=== PATIENT | female | born 1990 | race Caucasian/White ===

== ENCOUNTER 2021-04-22 09:38 | Observation (INO) | payer OTHER, SELFPAY ==
--- NOTE | 2021-04-22 09:38 | OBADM ---
This patient, Monserrat Terry, admitted to the OB room OB Post [facility] for observation. Patient/family oriented to hospital policies and general routines including ID bracelet, bed and alarms, visiting hours, pain management, procedures, bathroom and other care routines, personal items, smoking policy, room service/diet, and visiting hours. Patient/Family are encouraged to report perceived risks to care and to ask questions if they do not understand what they are told or what they should do.
[2021-04-22 10:14] VITALS: BP 112/66; PULSE 83
[2021-04-22 10:26] LABS: Add Urine Microscopic? NO; Appearance Urine Clear (Clear); Bilirubin Urine Negative (Negative); Blood Urine Negative (Negative); Color Urine Yellow (Yellow); Glucose Urine UA Negative (Negative); Ketones Urine Negative (Negative); Leukocyte Esterase Ur Negative LEU/UL (NEGATIVE); Nitrate Urine Negative (Negative); Protein Urine Negative (Negative); Specific Grav Ur 1.016 (1.001-1.035); Urobilinogen Urine Negative mg/dL (<2.0)
[2021-04-22 10:30] VITALS: BMI 32.8
--- NOTE | 2021-05-13 11:45 | PM.OBTRLD ---
OB - Triage/Final Diagnosis Visit Information Comments/Additional reasons for admission: I have assessed the risk for this patient, Monserrat Monkpetey, and determined that she would benefit from observation care. Evaluation Laboratory results: Laboratory Tests 04/22/21 10:14 Urine Color Yellow Urine Appearance Clear Urine pH 6.0 Ur Specific [place] 1.016 Urine Protein Negative Urine Glucose (UA) Negative Urine Ketones Negative Ur Blood (Man) Negative Urine Nitrate Negative Urine Bilirubin Negative Urine Urobilinogen Negative Ur Leukocyte Esterase Negative Final Diagnosis (1) False labor: Code(s): O47.9 - False labor, unspecified Status: Acute
== END 2021-04-22 11:55 | disposition home or self-care (01) ==
PROVIDERS: Admitting Provider Obstetrics & Gynecology; PCP Family Medicine; Visit Provider Obstetrics & Gynecology
DX: O47.02 False labor before 37 completed weeks of gestation, second trimester (principal); Z3A.27 27 weeks gestation of pregnancy
CPT/HCPCS: 81003; 84112; 87086; G0378; G0379

== ENCOUNTER 2021-06-19 20:58 | Observation (INO) | payer OTHER, SELFPAY ==
[2021-06-19 21:11] VITALS: BP 123/74; PULSE 80
[2021-06-19 22:17] VITALS: BMI 33.2
--- NOTE | 2021-06-21 12:30 | PM.OBTRLD ---
OB - Triage/Final Diagnosis Visit Information Reason for evaluation: threatened labor Comments/Additional reasons for admission: I have assessed the risk for this patient, Monserrat Terry, and determined that she would benefit from observation care.
== END 2021-06-19 22:15 | disposition home or self-care (01) ==
PROVIDERS: Admitting Provider Obstetrics & Gynecology; PCP Family Medicine; Visit Provider Obstetrics & Gynecology
DX: O47.03 False labor before 37 completed weeks of gestation, third trimester (principal); Z3A.35 35 weeks gestation of pregnancy
CPT/HCPCS: G0378; G0379

== ENCOUNTER 2021-07-08 20:46 | Observation (INO) | payer OTHER, SELFPAY ==
--- NOTE | 2021-07-08 20:46 | OBADM ---
This patient, Monserrat Terry, admitted to the OB room Labor/Delivery/Recovery 102 for observation. Patient/family oriented to hospital policies and general routines including ID bracelet, bed and alarms, visiting hours, pain management, procedures, bathroom and other care routines, personal items, smoking policy, room service/diet, and visiting hours. Patient/Family are encouraged to report perceived risks to care and to ask questions if they do not understand what they are told or what they should do.
[2021-07-08 20:59] VITALS: TEMP 36.4
--- NOTE | 2021-07-08 22:05 | PC.NURSE ---
Updated Dr. Gunter. Patient SVE unchanged throughout evaluation. Contractions and FHT reviewed. VSS. Discharge orders received.
--- NOTE | 2021-07-08 22:30 | PC.NURSE ---
Discharge instructions reviewed with patient. Labor precautions reviewed. Patient states understanding and agrees to discharge.
== END 2021-07-08 22:30 | disposition home or self-care (01) ==
PROVIDERS: Admitting Provider Obstetrics & Gynecology; PCP Family Medicine; Visit Provider Obstetrics & Gynecology
DX: O47.1 False labor at or after 37 completed weeks of gestation (principal); Z3A.38 38 weeks gestation of pregnancy
CPT/HCPCS: G0378; G0379

== ENCOUNTER 2021-07-16 15:54 | Inpatient (IN) | payer OTHER, SELFPAY ==
[2021-07-16] VITALS (12 sets, daily range): BP systolic 108–128; BP diastolic 58–77; PULSE 73–98; TEMP 36.4–36.7; BMI 33.9
--- NOTE | 2021-07-16 16:26 | LDADM ---
This patient, Monserrat Terry, was admitted to Labor/Delivery/Recovery 107 on 07/16/21 at 15:54. Plans for labor, pain management and were discussed with patient. Patient/family oriented to hospital policies and general routines including ID bracelet, bed and alarms, visiting hours, pain management, procedures, bathroom and other care routines, personal items, smoking policy, room service/diet and guest tray routines, security routines, and visiting hours. Patient/Family are encouraged to report perceived risks to care and to ask questions if they do not understand what they are told or what they should do. See OBIX for further documentation.
[2021-07-16 16:40] LABS: Basophils Percent Auto 0.3 % (0.2-1.2); Eosinophils Absolute Auto 0.1 K/mm3 (0-0.3); Eosinophils Percent Auto 0.7 % (0-4.4); Hematocrit 30.9 % (37.0-47.0); Hemoglobin 10.5 g/dL (12.0-15.0); Immature Granulocyte Absolute 0.11 K/mm3 (0.00-0.031); Immature Granulocyte Percent A 1.1 % (0-0.5); Lymphocytes Absolute Auto 2.05 K/mm3 (0.9-3.2); Lymphocytes Percent Auto 19.8 % (18.3-44.2); Mean Corpuscular Hemoglobin 31.2 pg (26-34); Mean Corpuscular Volume 91.7 fl (80-100); Mean Platelet Volume 9.6 fl (7.4-10.4); Monocytes Absolute Auto 0.9 K/mm3 (0.1-0.6); Monocytes Percent Auto 8.3 % (2.6-8.5); Neutrophils Absolute Auto 7.2 K/mm3 (1.3-6.7); Neutrophils Percent Auto 69.8 % (45.5-73.1); Platelet Count Result 256 k/mm3 (150-375); Red Blood Count 3.37 M/mm3 (4.2-5.4); Red Cell Distribution Width 13.4 % (11.5-14.5); White Blood Count 10.4 K/mm3 (4.5-10.0)
[2021-07-16] MEDS: DINOPROSTONE 10 MG VAG INSERT VAGINAL (17:01)
--- NOTE | 2021-07-16 19:06 | WPDANESEPP ---
Anes - Eval Pre Procedure Date/Time: 07/16/21 19:06 Pre Op Diagnosis: IOL Patient Data Age: 31 Gender: F Height: 1.65 m Weight: 92.5 kg Last Vital Signs Temp 36.7 C 07/16/21 17:06 Pulse 83 07/16/21 19:01 BP 126/77 07/16/21 19:01 Allergies Allergy/AdvReac Type Severity Reaction Status Date / Time codeine Allergy Unknown shortness Verified 06/21/21 13:41 of breath Home Medications Medication Instructions Recorded Confirmed Type prenat.vits,silviano,[id number] 1 tablet PO DAILY 07/08/21 07/16/21 History [ Vitamin] Laboratory Tests 07/16/21 07/16/21 07/16/21 16:17 16:17 16:17 WBC 10.4 K/mm3 H K/mm3 (4.5-10.0) RBC 3.37 M/mm3 L M/mm3 (4.2-5.4) Hgb 10.5 g/dL L g/dL (12.0-15.0) Hct 30.9 % L % (37.0-47.0) MCV 91.7 fl fl (80-100) MCH 31.2 pg pg (26-34) MCHC 34.0 g/dl g/dl (32-36) RDW 13.4 % % (11.5-14.5) Plt Count 256 k/mm3 k/mm3 (150-375) MPV 9.6 fl fl (7.4-10.4) Immature Gran % (Auto) 1.1 % H % (0-0.5) Neut % (Auto) 69.8 % % (45.5-73.1) Lymph % (Auto) 19.8 % % (18.3-44.2) [place] % (Auto) 8.3 % % (2.6-8.5) Eos % (Auto) 0.7 % % (0-4.4) Baso % (Auto) 0.3 % % (0.2-1.2) Lymph # (Auto) 2.05 K/mm3 K/mm3 (0.9-3.2) [place] # (Auto) 0.9 K/mm3 H K/mm3 (0.1-0.6) Eos # (Auto) 0.1 K/mm3 K/mm3 (0-0.3) Baso # (Auto) 0.0 K/mm3 K/mm3 (0.0-0.1) Abs Immat Gran (auto) 0.11 K/mm3 H K/mm3 (0.00-0.031) Absolute Neuts (auto) 7.2 K/mm3 H K/mm3 (1.3-6.7) Absolute Nucleated RBC 0.0 K/mm3 K/mm3 (0.0-0.012) Nucleated RBC % 0.0 % % (0.0-0.2) RPR Pending Blood Type O Positive Antibody Screen Negative Patient hx anesthesia problems: none Family hx anesthesia problems: none Results Review: All pre-operative results and documents have been reviewed as part of the pre-operative evaluation. [facility] Family History Family History Sibling Family history of alcoholism Other Family history of thyroid disease Grandparent Breast cancer in female Grandparent Ovarian cancer Hypertension Social History Social History Social History: Single Smoking status: Never smoker Tobacco type: cigarettes Second hand tobacco smoke exposure: Yes Additional smoking assessment comments: Pt smokes 3 or 4 a week. Mostly a social smoker. Alcohol intake: current Alcohol use details: Occasionally Substance use: never Substance use type: former substance user Last use: marijuana Gender identity (if verbalized by the patient): Female Sexual Orientation (if Verbalized by the Patient): Straight or Heterosexual Spiritual care concerns: No Exam Day of Procedure 07/16/21 19:06 Patient weight: obese Heart: regular rate and rhythm Lungs: normal air movement Airway: Mallampati scale Neurological: alert and oriented
[2021-07-16 19:55] LABS: Amphetamine Screen Urine Negative (Negative); Barbiturate Screen Urine Negative (Negative); Benzodiazepines Screen Urine Negative (Negative); Cannabinoid Screen Urine Positive (Negative); Cocaine Screen Urine Negative (Negative); Methadone Screen Urine Negative (Negative); Opiate Screen Urine Negative (Negative); Phencyclidine Screen Urine Negative (Negative)
[2021-07-17] VITALS (148 sets, daily range): BP systolic 87–143; BP diastolic 49–97; PULSE 60–136; RESP 18; TEMP 36.1–37.2; O2SAT 96–100
[2021-07-17] MEDS: LACTATED RINGERS 1,000 ML 125 ML IV CONT ×2 (05:51→09:11)
[2021-07-17] MEDS: OXYTOCIN 30 UNITS/NS 500 ML 30 UNITS/500 ML BAG IV CONT (05:52)
[2021-07-17 07:03] LABS: Rapid Plasma Reagin Non-Reactive (NonReactive)
[2021-07-17] MEDS: fentaNYL CITRATE INJ (*CRX) 100 MCG/2 ML VIAL IV PUSH (07:08)
--- NOTE | 2021-07-17 08:40 | WPDOBADMIT ---
Obstetrics - Admit Note Admission Note: record reviewed. Additions to the history and/or subsequent changes in the physical findings follow. 31 y/o at 39 4/7 weeks here for induction of labor. Cervidil last night, has been withdrawn. GBS neg. AVSS NST reactive TOCO: contractions irregularly ABD soft, nontender, gravid, vertex EXT nontender Cervix 2-3/50/-2. AROM with clear fluid. IUPC placed. A: IUP at term, desiring induction of labor. P: Oxytocin. Anticipate .
--- NOTE | 2021-07-17 12:25 | PM.OBPNLAB ---
Pain Control Date/time seen: 07/17/21 12:25 Comfortable with epidural. AVSS NST reactive TOCO: contractions every 3-4 min Cervix 3-4/80/-2 Continue labor.
--- NOTE | 2021-07-17 15:55 | PM.OBPRVD ---
OB - Delivery Note Procedure Delivery date: 07/17/21 Procedure: Induction of labor with Induction method: Per Cervidil Protocol Delivery augmentation: Rupture of Membranes and Pitocin Delivery monitor: External FHT, External Uterine and Internal Uterine Route of delivery: Laceration Description: Periurethral Delivery repair: vicryl (3-0) Specimen: Yes (cord blood) Quantitative Blood Loss (ml): 210 Anesthesia type: Epidural Disposition: PACU Complications: Shoulder dystocia Narrative: 31 y/o at 39 4/7 weeks gestation who presented to the hospital for induction of labor. Cervidil was placed overnight, then withdrawn the next morning. Oxytocin was administered intravenously. Amniotomy was performed with return of clear fluid. She received an epidural for pain control. Her labor progressed and her cervix dilated completely. She pushed with good effort and delivered the 's head to the perineum. A shoulder dystocia was encountered. McRobert's maneuver was employed. Fundal pressure was strictly avoided. The posterior (left) shoulder was able to be grasped. A clockwise rotation did not succeed, but counterclockwise rotation did expose the anterior shoulder and the body was able to be delivered. The nose and mouth were bulb suctioned. After a delay, the cord was clamped and cut. The infant was handed off the field. Cord blood was collected. The placenta delivered spontaneously and was grossly normal in appearance. The usual 3 vessel cord was noted. A right-sided periurethral laceration was sustained. This was reapproximated using 3 0 Vicryl in interrupted figure of eight fashion. Excellent hemostasis resulted as did excellent reapproximation of the normal anatomy. Needle and instrument counts were correct. The patient was taken to recovery room in stable condition. The infant went to the nursery in stable condition. I was present and scrubbed for the entire delivery. Baby Date of : 07/17/21 Time of : 15:31 Weeks of gestation at delivery: 39 gender: Female Weight (pounds): 6 Weight (ounces): 13 presentation: vertex position: Left Occiput Anterior Placenta delivery description: Spontaneous and Normal Configuration Cord Vessel Description: 3 Vessels and Delayed Cord Clamping score one minute: 8 score five minutes: 9
--- NOTE | 2021-07-17 16:01 | PM.OBDSVD ---
DS: Admitting Diagnosis Discharge Date 07/18/21 Admitting Diagnosis IUP at 39 4/7 weeks DS: Discharge Diagnosis Discharge Diagnosis (1) (normal spontaneous vaginal delivery): Code(s): O80 - Encounter for full-term uncomplicated delivery Status: Acute OB - DS: Summary OB Procedures : None OB Procedures Intrapartum: Spontaneous Vag Delivery OB Procedures: : None DS: Data Data Completed and Pending Labs on day of discharge: Labs from last 24 hours 07/16/21 07/16/21 07/16/21 19:13 16:17 16:17 WBC RBC Hgb Hct MCV MCH MCHC RDW Plt Count MPV Immature Gran % (Auto) Neut % (Auto) Lymph % (Auto) [place] % (Auto) Eos % (Auto) Baso % (Auto) Lymph # (Auto) [place] # (Auto) Eos # (Auto) Baso # (Auto) Abs Immat Gran (auto) Absolute Neuts (auto) Absolute Nucleated RBC Nucleated RBC % Urine Opiates Screen Negative Urine Methadone Screen Negative Ur Barbiturates Screen Negative Ur Phencyclidine Scrn Negative Ur Amphetamine Screen Negative U Benzodiazepines Scrn Negative Urine Cocaine Screen Negative U Cannabinoids Screen Positive A RPR Non-reactive Blood Type O Positive Antibody Screen Negative 07/16/21 16:17 WBC 10.4 H RBC 3.37 L Hgb 10.5 L Hct 30.9 L MCV 91.7 MCH 31.2 MCHC 34.0 RDW 13.4 Plt Count 256 MPV 9.6 Immature Gran % (Auto) 1.1 H Neut % (Auto) 69.8 Lymph % (Auto) 19.8 [place] % (Auto) 8.3 Eos % (Auto) 0.7 Baso % (Auto) 0.3 Lymph # (Auto) 2.05 [place] # (Auto) 0.9 H Eos # (Auto) 0.1 Baso # (Auto) 0.0 Abs Immat Gran (auto) 0.11 H Absolute Neuts (auto) 7.2 H Absolute Nucleated RBC 0.0 Nucleated RBC % 0.0 Urine Opiates Screen Urine Methadone Screen Ur Barbiturates Screen Ur Phencyclidine Scrn Ur Amphetamine Screen U Benzodiazepines Scrn Urine Cocaine Screen U Cannabinoids Screen RPR Blood Type Antibody Screen Discharge Plan Discharge Attending physician on discharge: Brice Wilson Discharging Clinician: Brice Wilson Patient Disposition: Home, Self-Care Activity: pelvic rest Diet: regular Discharge Instructions: Call or return if temperature above 100.4? F, increased abdominal pain, increased vaginal bleeding or any new problems. Stand Alone Forms: General Discharge Information Follow-up/Referrals: Brice Wilson MD [Physician] - 6 Weeks Discharge Medications: New ibuprofen 600 mg tablet 600 mg PO Q6H PRN (Reason: cramps) Qty: 30 RF: 0 Continued Vitamin Tablet 1 tablet PO DAILY RF: 0 Date of admission: 07/16/21 15:54 Primary Care Provider: Consuelo Ibrahim Admitting Provider: Brice Wilson Attending physician on admission: Brice Wilson Condition: Stable
[2021-07-17] MEDS: OXYTOCIN 30 UNITS/NS 500 ML 30 UNITS/500 ML BAG 125 UNITS IV CONT (16:10)
[2021-07-17] MEDS: WITCH HAZEL 40 PADS 1 PAD TOPICAL (17:24)
[2021-07-17] MEDS: BENZOCAINE 20% AER SPR (*SP) 56 GM CAN 1 SPRAY TOPICAL (17:24)
[2021-07-17] MEDS: IBUPROFEN 600 MG TABLET PO (17:24)
--- NOTE | 2021-07-17 19:40 | ADMGEN ---
This patient, Monserrat Terry, was admitted to OB 2nd Floor Room 284-00. Patient/family oriented to hospital policies and general routines including ID bracelet, bed and alarms, visiting hours, pain management, procedures, bathroom and other care routines, personal items, smoking policy, room service/diet, and visiting hours. Information on how to activate the Rapid Response Team has been discussed. Patient/Family are encouraged to report perceived risks to care and to ask questions if they do not understand what they are told or what they should do.
[2021-07-18] VITALS: BP 108/64; PULSE 76; RESP 18; TEMP 36.8
[2021-07-18 03:30] VITALS: BP 107/65; PULSE 72; RESP 18; TEMP 36.9
[2021-07-18] MEDS: LANOLIN (LANSINOH) 7.5 GM CREAM 1 APPLIC TOPICAL (03:40)
[2021-07-18] MEDS: IBUPROFEN 600 MG TABLET PO (03:56)
[2021-07-18 05:06] LABS: Hematocrit 31.4 % (37.0-47.0); Hemoglobin 10.8 g/dL (12.0-15.0)
[2021-07-18 07:55] VITALS: BP 103/70; PULSE 74; RESP 18; TEMP 36.8; O2SAT 100
--- NOTE | 2021-07-18 08:59 | PM.OBPNVD ---
OB - PN: Subj Subjective Date/time seen: 07/18/21 08:59 Narrative: Pain OK. Would like to go home. OB - PN: Obj Data Labs CBC & Chem 7: 07/18/21 03:40 Labs: Laboratory Results - last 24 hr 07/18/21 03:40 Hgb 10.8 L Hct 31.4 L OB - PN A/P Plan Comments: A: PPD#2, doing well. P: Home to f/u 6 weeks. Exam Psych: Other: AVSS ABD soft, nontender, fundus firm EXT nontender
--- NOTE | 2021-07-18 09:53 | WPDANLDPN2 ---
Anes-Prog Note L&D Date/Time: 07/18/21 09:53 Comfortable throughout: labor and delivery Neuraxial method: epidural Epidural/Spinal procedure site: clean & non-tender Neuro status: Neuro function grossly intact. Cardiovascular status: normal Respiratory status: normal Airway patency: baseline Mental status: baseline Post-Op hydration status: normal Vital Signs: Last Vital Signs Temp 36.8 C 07/18/21 07:55 Pulse 74 07/18/21 07:55 Resp 18 07/18/21 07:55 BP 103/70 07/18/21 07:55 Pulse Ox 100 07/18/21 07:55 Pain score (VAS): 03/18 I/O: Intake & Output 07/17/21 07/18/21 07/18/21 23:59 07:59 15:59 Intake Total 1999 Balance 1999 Post-procedural complaints: none Patient feedback: Patient satisfied with anesthetic care.
[2021-07-18 12:07] VITALS: BP 104/66; PULSE 84; RESP 16; TEMP 36.4; O2SAT 99
--- NOTE | 2021-07-18 13:55 | PCCCNOTE ---
Care Coordination met with pt. and baby this morning to discuss discharge planning. Pt. states that her current D/C plan is to return home with FOB, baby, and her 5 year old daughter. Pt. has everything needed to safely bring baby home. She will continue to breast feed baby at time of D/C and does not qualify for WIC. Pt. has appointment with Dr. Briana Horan for pediatric follow up. Pt. has no concerns about bringing baby home. Pt. denies any prior DCFS history. She did test positive for Marijuana at time of admission. Pt. states she used Marijuana throughout her to assist with anxiety and other symptoms. Pt. understands that CC will have to report the drug use if baby tests positive. Baby has a pending umbilical cord drug test. Pt. states understanding, she is eager to D/C home with baby today. CC has provided pt. with contact info and will update her on umbilical cord test results. Will follow.
[2021-07-18] MEDS: TETANUS,DIPHTHERIA,AC PERTUSSIS ADULT (0.5 ML) BOOSTRIX IM (15:28)
--- NOTE | 2021-07-18 18:21 | PC.NURSE ---
1215 Breast feeding note; mother pumping by her choice at time of nurse visit. she was using 24mm flanges and areola rim at the nipple swollen with mother reporting nipple pain at a 6 on 1-10 scale. 21mm flanges given to her. She was going to use them prior to discharge to assess the size. Mother able to pump about 11 cc transitional looking breastmilk. She reports baby is nursing at the breast, with some difficulty on her R side. Reviewed latch on and positioning using c-hold. Mother seemed confident; she was encouraged to call out for nurse assistance for latch next feeding. Pt voiced understanding of all information shared .
[2021-07-19 10:00] VITALS: BP 120/76; PULSE 91; RESP 20; TEMP 37.2; O2SAT 98
== END 2021-07-18 16:37 | disposition home or self-care (01) | DRG 807 ==
LOC: ANHLDR 07-17 16:02 → ANHOB2 07-17 19:43
PROVIDERS: Admitting Provider Obstetrics & Gynecology; PCP Family Medicine; Visit Provider Obstetrics & Gynecology
DX: O66.0 Obstructed labor due to shoulder dystocia (principal); Z37.0 Single live birth; Z3A.39 39 weeks gestation of pregnancy; O36.8330 Maternal care for abnormalities of the fetal heart rate or rhythm, third trimester, not applicable or unspecified; O71.82 Other specified trauma to perineum and vulva
CPT/HCPCS: 36415; 80307; 85014; 85018; 85025; 86592; 86850; 86900; 86901; 90715; A9270; J2590; J2795; J3010; J7120

== ENCOUNTER 2021-12-06 12:52 | Emergency (ER) | payer OTHER, SELFPAY ==
[2021-12-06 12:53] VITALS: BP 114/69; PULSE 106; RESP 20; TEMP 36.6; O2SAT 97
[2021-12-06 13:22] LABS: Basophils Percent Auto 0.3 % (0.2-1.2); Hematocrit 38.5 % (37.0-47.0); Hemoglobin 13.4 g/dL (12.0-15.0); Immature Granulocyte Absolute 0.02 K/mm3 (0.00-0.031); Immature Granulocyte Percent A 0.5 % (0-0.5); Lymphocytes Absolute Auto 0.59 K/mm3 (0.9-3.2); Lymphocytes Percent Auto 15.1 % (18.3-44.2); Mean Corpuscular HGB Conc 34.8 g/dl (32-36); Mean Corpuscular Hemoglobin 31.5 pg (26-34); Mean Corpuscular Volume 90.4 fl (80-100); Mean Platelet Volume 9.5 fl (7.4-10.4); Monocytes Absolute Auto 0.7 K/mm3 (0.1-0.6); Monocytes Percent Auto 17.6 % (2.6-8.5); Neutrophils Absolute Auto 2.6 K/mm3 (1.3-6.7); Neutrophils Percent Auto 66.5 % (45.5-73.1); Platelet Count Result 220 k/mm3 (150-375); Red Blood Count 4.26 M/mm3 (4.2-5.4); Red Cell Distribution Width 12.4 % (11.5-14.5); White Blood Count 3.9 K/mm3 (4.5-10.0)
[2021-12-06 13:32] LABS: Alanine Aminotransferase 22 U/L (6-35); Albumin Level 4.5 g/dL (3.5-5.1); Alkaline Phosphatase 52 U/L (38-126); Anion Gap 11 mmol/L (8-16); Aspartate Amino Transferase 23 U/L (14-36); Bilirubin,Total 0.4 mg/dL (0.2-1.3); Blood Urea Nitrogen 8 mg/dL (7-17); Calcium 8.8 mg/dL (8.4-10.2); Carbon Dioxide 24 mmol/L (22-30); Chloride 103 mmol/L (98-107); Estimated Glomerular Filt Rate > 60; Glucose 104 mg/dL (65-110); Lipase 133 U/L (23-300); Potassium 3.4 mmol/L (3.4-5.0); Sodium 138 mmol/L (137-145)
[2021-12-06 13:54] LABS: Appearance Urine Clear (Clear); Bilirubin Urine Negative (Negative); Blood Urine 2+ (Negative); Color Urine Yellow (Yellow); Glucose Urine UA Negative (Negative); Ketones Urine 1+ mg/dL (Negative); Leukocyte Esterase Ur Trace LEU/UL (Negative); Nitrate Urine Negative (Negative); Protein Urine Negative (Negative); Urobilinogen Urine 0.2 mg/dL (<2.0)
[2021-12-06] MEDS: LACTATED RINGERS 1,000 ML 999 ML IV CONT ×2 (13:57→16:29)
[2021-12-06] MEDS: ONDANSETRON INJ 4 MG/2 ML VIAL IV PUSH (13:58)
[2021-12-06 14:00] LABS: Bacteria Urine Trace /hpf; Mucus Urine Rare /lpf; RBC Urine 0-2 /hpf (0-2); Squamous Epithelial Cell Urine Few /hpf (Few)
[2021-12-06 14:02] LABS: Add Urine Microscopic? YES
--- NOTE | 2021-12-06 14:56 | ED.GENADULT ---
HPI - General Adult General Chief complaint: Unspecified Stated complaint: vomiting Time Seen by Provider: 12/06/21 13:13 Source: patient and RN notes reviewed Mode of arrival: ambulatory Limitations: no limitations History of Present Illness HPI narrative: This is a 31 year old female who presents for evaluation of nausea and vomiting. Patient states she ate pork sandwhich Thursday evening and she woke up at 10 pm that night with nausea and vomiting. She continued to have nausea and vomiting yesterday. She also developed frontal headache and low back pain. She reports low grade fever on yesterday of 99 F. She denies abdominal pain, diarrhea, cough, or urinary symptoms. Onset (ago): day(s) Related Data Home Medications Medication Instructions Recorded Confirmed prenat.vits,silviano,[id number] 1 tablet PO DAILY 07/08/21 07/16/21 Allergies Allergy/AdvReac Type Severity Reaction Status Date / Time codeine Allergy Unknown shortness Verified 06/21/21 13:41 of breath Review of Systems Review of Systems: CONSTITUTIONAL: Denies chills, or sweats.reports EYES: Denies visual changes, redness, or discharge. ENT: Denies rhinorrhea, congestion, sore throat, or otalgia. CARDIOVASCULAR: Denies chest pain, palpitations, or edema. RESPIRATORY: Denies cough or dyspnea. GASTROINTESTINAL: Denies abdominal pain or diarrhea. reports nausea and vomiting GENITOURINARY: Denies dysuria or hematuria. SKIN: Denies rash or itching. MUSCULOSKELETAL: Denies joint pain, or myalgia. reports low back pain NEUROLOGIC: Denies numbness, or weakness. reports headache PSYCHIATRIC: Denies anxiety or depression. All systems reviewed & are unremarkable except as noted in HPI and below PMFSH Family History Family History Sibling Family history of alcoholism Other Family history of thyroid disease Grandparent Breast cancer in female Grandparent Ovarian cancer Hypertension Social History Social History Social History: Single Smoking status: Never smoker Tobacco type: cigarettes Second hand tobacco smoke exposure: Yes Additional smoking assessment comments: Pt smokes 3 or 4 a week. Mostly a social smoker. Alcohol intake: current Alcohol use details: Occasionally Substance use: never Substance use type: former substance user Last use: marijuana Gender identity (if verbalized by the patient): Female Sexual Orientation (if Verbalized by the Patient): Straight or Heterosexual Spiritual care concerns: No Exam Narrative: GENERAL: Well-appearing, well-nourished, and in no acute distress. HEAD: Normocephalic, atraumatic EYES: PERRLA and EOMI, conjunctiva clear without discharge EARS: TM's clear bilaterally without erythema or dullness NOSE: Nares clear, no rhinorrhea or epistaxis THROAT:Mucous membranes moist, Oropharynx normal without erythema, exudate, peritonsillar swelling or fluctuance NECK: Supple, without lymphadenopathy or mass RESPIRATORY: No respiratory distress, Airway patent, Respirations non-labored, Clear to auscultation without rales, rhonchi or wheeze HEART: Regular rate and rhythm. No murmur heard. Normal peripheral pulses. ABDOMEN: Soft, nontender, nondistended, normal active bowel sounds. No masses. No rebound or guarding, No organomegaly. EXTREMITIES: No edema, normal strength with full range of motion. SKIN: Warm, dry, normal color without rash NEURO: Alert and oriented x3. CN 2-12 grossly intact. No focal deficits. PSYCH: Normal mood and affect. Course Reevaluation(s) Reevaluation #1: PAtient states she still feels ill. She is currently ending her cycle Date: 12/06/21 Time: 14:59 Reevaluation #2: I Discussed with patient that she has covid as source of her illness. She is able to tolerate PO Date: 12/06/21 Time: 17:05 Vital Signs Vital signs: Vital Si
[2021-12-06 15:01] LABS: SARS-CoV-2 RNA PCR Positive
[2021-12-06] MEDS: KETOROLAC 30 MG/ML VIAL (*BKC) IV PUSH (15:09)
[2021-12-06] MEDS: METOCLOPRAMIDE HCL INJ 10 MG/2 ML VIAL IV PUSH (15:09)
[2021-12-06] MEDS: diphenhydrAMINE HCl INJ 50 MG/ML VIAL 25 MG IV PUSH (15:10)
--- NOTE | 2021-12-06 15:15 | PC.NURSE ---
1500 Assumed pt care from DIXON Tucker
[2021-12-06 17:50] VITALS: BP 113/72; PULSE 61; RESP 16; O2SAT 98
== END 2021-12-06 17:55 | disposition home or self-care (01) ==
PROVIDERS: Emergency Provider General Practice; PCP Family Medicine
DX: U07.1 COVID-19 (principal); E86.0 Dehydration; F17.210 Nicotine dependence, cigarettes, uncomplicated
CPT/HCPCS: 36415; 80053; 81001; 81025; 83690; 85025; 96361; 96374; 96375; 99284; C9803; J1200; J1885; J2405; J2765; J7120; U0003; U0005

== ENCOUNTER 2023-05-26 08:41 | Emergency (ER) | payer SELFPAY ==
--- NOTE | 2023-05-26 08:51 | ED.URI ---
HPI - URI/Sore Throat General Chief Complaint: Upper Respiratory Infection Stated Complaint: cough,sore throat Time Seen by Provider: 05/26/23 08:51 Source: patient Mode of arrival: ambulatory Limitations: no limitations History of Present Illness HPI Narrative: Monserrat is a 33-year-old female patient presenting to the clinic today with complaints of cough and sore throat that started this morning. She reports her daughter is sick and coughed in her face all last night. Daughter tested positive for strep in the clinic today MD elicited complaint: cough, sore throat and nasal congestion Related Data Allergies Allergy/AdvReac Type Severity Reaction Status Date / Time codeine Allergy Severe shortness Verified 05/26/23 09:25 of breath Review of Systems Review of Systems: Pertinent positives per HPI. Patient denies any fever, chills, rash, headache, visual changes, dizziness, shortness of breath, chest pain, palpitations, nausea, vomiting, diarrhea, constipation, abdominal pain, or any urinary issues. PMFSH Family History Family History Sibling Family history of alcoholism Other Family history of thyroid disease Grandparent Breast cancer in female Grandparent Ovarian cancer Hypertension Social History Social History Social History: Single Smoking status: Never smoker Tobacco type: cigarettes Second hand tobacco smoke exposure: Yes Additional smoking assessment comments: Pt smokes 3 or 4 a week. Mostly a social smoker. Alcohol intake: current Alcohol use details: Occasionally Substance use: current Substance use type: former substance user Last use: 06/19/21 Living arrangements: with family Occupation/Education: occupation Gender identity (if verbalized by the patient): Female Sexual Orientation (if Verbalized by the Patient): Straight or Heterosexual Spiritual care concerns: No Comments At the time of my signature, I reviewed and agree with the nursing past medical, surgical, social, and family history. There is no relevant family history pertinent to the patient complaint. Exam Narrative: General: Well-developed, well nourished, in no apparent distress Head: Normocephalic, atraumatic Eyes: Pupils equally round and reactive to light bilaterally, EOM intact, sclera and conjunctive clear, no discharge, lids normal Ears: TMs intact and clear, ear canals clear, no drainage, grossly hearing normal. Nose: Nares patent, no discharge, no inflammation, no sinus tenderness. Mouth: Oral pharynx red without lesions or masses, good dentition, MMM. Neck: Supple, trachea midline, no enlargement of anterior or posterior cervical nodes, no thyroid masses or goiter palpable. Cardio: Regular rate and rhythm, s1 and s2 normal, no murmur appreciated. Resp: Clear to auscultation bilaterally, no rhonchi, rales, wheezing or rubs Course Course Emergency Course: Portions of this record may have been created with voice recognition software. Level of Care: Express Care Visit Vital Signs Vital signs: Vital signs reviewed MDM - URI/Sore Throat MDM Narrative Medical decision making narrative: At the time of visit patient is resting comfortably on the exam table. Patient appears to be nontoxic. Labs: COVID, influenza, and strep test were all negative in the clinic today. We will send strep for culture Plan: I suspect patient has URI/pharyngitis. Supportive measures were discussed with the patient and they voiced understanding discharge instructions and agrees to treatment plan. Return precautions reviewed Differential Diagnosis Differential diagnosis: Likely upper respiratory infection, otitis media, sinusitis, viral infection, bronchitis, influenza, pharyngitis and other (COVID) Discharge Plan Discharge Clinical Impression: Pharyngitis, URI (upper respiratory
[2023-05-26 09:02] VITALS: BP 115/63; PULSE 72; RESP 16; TEMP 36.8; O2SAT 100
== END 2023-05-26 09:49 | disposition home or self-care (01) ==
PROVIDERS: Emergency Provider Nurse Practitioner Family; PCP Internal Medicine Endocrinology, Diabetes & Metabolism
DX: J02.9 Acute pharyngitis, unspecified (principal); J06.9 Acute upper respiratory infection, unspecified; Z72.0 Tobacco use
CPT/HCPCS: 87081; 87880; 99213; G0463